=== PATIENT | female | born 1980 | race Caucasian/White ===

== ENCOUNTER 2020-11-23 11:41 | Observation (INO) | payer SELFPAY ==
[2020-11-23] MEDS ORDERED: Midazolam HCl 2 mg/2 ml Vial ONE (12:34)
[2020-11-23] MEDS ORDERED: Lidocaine 1% PF 5 ML VIAL ONE (13:01)
[2020-11-23] MEDS ORDERED: Ketorolac Tromethamine 30 MG/ML VIAL ONE (13:01)
[2020-11-23] MEDS ORDERED: Dexamethasone 20 MG/5 ML VIAL ONE (13:01)
[2020-11-23] MEDS ORDERED: Ondansetron PF 4 MG/2 ML Vial ONE (13:01)
[2020-11-23] MEDS ORDERED: PROPOFOL 200 MG/20 ML VIAL ONE (13:01)
[2020-11-23] MEDS ORDERED: Iothalamate Meglumine 60% 30 ML VIAL FS ONE (13:16)
[2020-11-23] MEDS ORDERED: Oxybutynin 5 MG TAB PO PRN (13:49)
[2020-11-23] MEDS ORDERED: Ondansetron PF 4 MG/2 ML Vial IVP PRN (13:49)
[2020-11-23] MEDS ORDERED: diphenhydrAMINE 50 MG/ML VIAL IVP PRN (13:49)
[2020-11-23] MEDS ORDERED: Fentanyl 100 MCG/2 ML VIAL ONE (13:58)
[2020-11-23] MEDS ORDERED: Promethazine HCl 25 MG/ML VIAL IM PRN (14:29)
[2020-11-23] MEDS ORDERED: HYDROmorphone 2 MG/ML VIAL SLOW IVP PRN (14:29)
[2020-11-23] MEDS ORDERED: Promethazine HCl 25 MG/ML VIAL IVPB PRN (14:29)
[2020-11-23 16:07] VITALS: BMI 22.8
[2020-11-23] MEDS: Morphine 4 MG/ML VIAL SLOW IVP PRN (16:53)
[2020-11-23] MEDS: Ketorolac Tromethamine 30 MG/ML VIAL IVP SCH (18:24)
[2020-11-23] MEDS: D5 0.9% NS w/ 20 mEq KCl 1,000 ML IV SCH (18:24)
[2020-11-23] MEDS ORDERED: Zolpidem Tartrate 5 MG TAB PO PRN (21:00)
[2020-11-23] MEDS: Docusate 100 MG CAP PO SCH (22:30)
[2020-11-24] MEDS: Ketorolac Tromethamine 30 MG/ML VIAL IVP SCH ×2 (01:17→06:23)
[2020-11-24] MEDS: D5 0.9% NS w/ 20 mEq KCl 1,000 ML IV SCH (01:39)
[2020-11-24] MEDS: HYDROcodone/Acetaminophen 5/325 mg Tablet PO PRN ×2 (04:23→11:32)
[2020-11-24 06:26] LABS: Anion Gap 9 mmol/L (10-20); BUN (Urea Nitrogen) 9 mg/dL (7.0-18.7); Calc. Creatinine Clearance 100 mL/min (70-130); Calcium 8.4 mg/dL (7.8-10.44); Carbon Dioxide 23 mmol/L (22-29); Chloride 109 mmol/L (98-107); Glucose 146 mg/dL (70-105); Potassium 4.4 mmol/L (3.5-5.1); Sodium 137 mmol/L (136-145)
[2020-11-24 06:33] LABS: Band 10 % (5-11); Hemoglobin 11.4 g/dL (12.0-16.0); Hypochromia SLIGHT = 6-15 cells (100X) (0-5/hpf); Lymphocytes 2 % (21-51); MDiff Complete? YES; Mean Corpuscular HGB CONC 33.5 g/dL (32.0-36.0); Mean Corpuscular Hemoglobin 32.2 pg (27.0-31.0); Mean Corpuscular Volume 96.3 fL (78.0-98.0); Mean Platelet Volume 7.1 fL (7.4-10.4); Monocytes 4 % (0-10); Neutrophil 84 % (42-75); Platelet Count 309 thou/uL (130-400); Platelet Morphology Comment Appears Adequate; Red Blood Cell (RBC) Count 3.53 mill/uL (4.20-5.40); White Blood Cell (WBC) Count 21.1 thou/uL (4.8-10.8)
[2020-11-24] MEDS ORDERED: cefTRIAXone\\ROCEPHIN 1 GM in Sodium Chloride 0.9% 100 ML IVPB SCH (08:00)
[2020-11-24] MEDS: Docusate 100 MG CAP PO SCH (08:59)
[2020-11-24] MEDS: Morphine 4 MG/ML VIAL SLOW IVP PRN (09:18)
[2020-11-24 11:31] VITALS: BP 121/73; TEMP 98.3
== END 2020-11-24 12:15 | disposition home or self-care (01) ==
LOC: SDC 11:41 → SURG B 13:12
PROVIDERS: ADMIT Urology; ATTEND Urology
PROC: 0T788DZ Dilation of Bilateral Ureters with Intraluminal Device, Via Natural or Artificial Opening Endoscopic (ICD-10-PCS; principal; 2020-11-23)
DX: A41.9 Sepsis, unspecified organism (principal); N13.6 Pyonephrosis; Z88.1 Allergy status to other antibiotic agents; Z98.51 Tubal ligation status
CPT/HCPCS: 36415; 74420; 80048; 85025; 96365; 96375; 96376; C2617; G0378; J0696; J1100; J1885; J2250; J2270; J2405; J2704; J3010; J3480; J3490

== ENCOUNTER 2022-01-01 17:46 | Observation (INO) | payer SELFPAY ==
[2022-01-01] MEDS ORDERED: Ketorolac Tromethamine 30 MG/ML VIAL ONE (19:15)
[2022-01-01] MEDS ORDERED: cefTRIAXone\\ROCEPHIN 2 GM VIAL ONE (19:54)
[2022-01-01] MEDS ORDERED: Ondansetron PF 4 MG/2 ML Vial IVP PRN (20:30)
[2022-01-01] MEDS ORDERED: Ondansetron ODT 4 MG TAB SL PRN (20:30)
[2022-01-01] MEDS ORDERED: Ketorolac Tromethamine 30 MG/ML VIAL IVP PRN (20:31)
[2022-01-01] MEDS ORDERED: Morphine 4 MG/ML VIAL SLOW IVP PRN (20:32)
[2022-01-01] MEDS: Lactated Ringer's 1,000 ML IV SCH (21:22)
[2022-01-02 06:08] VITALS: BMI 24.7
[2022-01-02] MEDS: Lactated Ringer's 1,000 ML IV SCH (06:44)
[2022-01-02] MEDS ORDERED: Cefepime 1 GM in Sodium Chloride 0.9% 100 ML IVPB SCH (09:00)
[2022-01-02] MEDS ORDERED: Ketorolac Tromethamine 30 MG/ML VIAL IVP PRN (10:17)
[2022-01-02] MEDS ORDERED: Ondansetron PF 4 MG/2 ML Vial IVP PRN (10:18)
[2022-01-02] MEDS: Morphine 2 MG/ML VIAL SLOW IVP PRN ×2 (10:25→15:52)
[2022-01-02] MEDS ORDERED: Lactated Ringer's 1,000 ML IV SCH (10:30)
[2022-01-02] MEDS ORDERED: fentaNYL Citrate/PF 100 MCG/2 ML SYRINGE ONE (12:23)
[2022-01-02] MEDS ORDERED: Iopamidol 0 ML ONE (12:29)
[2022-01-02] MEDS ORDERED: B & O ONE (12:29)
[2022-01-02] MEDS ORDERED: Ondansetron PF 4 MG/2 ML Vial ONE (13:10)
[2022-01-02] MEDS ORDERED: PROPOFOL 200 MG/20 ML VIAL ONE (13:10)
[2022-01-02] MEDS ORDERED: Phenylephrine 10 MG/ML VIAL ONE (13:10)
[2022-01-02] MEDS ORDERED: Dexamethasone 20 MG/5 ML VIAL ONE (13:10)
[2022-01-02] MEDS ORDERED: Lidocaine 1% MPF 2 ML VIAL ONE (13:10)
[2022-01-02 20:07] VITALS: BP 108/73; TEMP 97.8
[2022-01-02] MEDS ORDERED: Oxybutynin 5 MG TAB PO SCH (21:00)
[2022-01-03] MEDS ORDERED: Tamsulosin HCl 0.4 MG CAP PO SCH (09:00)
== END 2022-01-02 19:00 | disposition home or self-care (01) ==
LOC: ERS 17:46 → SURG B 19:26
PROVIDERS: ADMIT Urology; ATTEND Urology
PROC: 0T778DZ Dilation of Left Ureter with Intraluminal Device, Via Natural or Artificial Opening Endoscopic (ICD-10-PCS; principal; 2022-01-02)
DX: N13.6 Pyonephrosis (principal); F17.210 Nicotine dependence, cigarettes, uncomplicated; F12.10 Cannabis abuse, uncomplicated; Z88.1 Allergy status to other antibiotic agents
CPT/HCPCS: 76000; 96374; 96375; 96376; C2617; G0378; J0692; J0696; J1100; J1885; J2270; J2370; J2405; J2704; J3490; J7120; Q9967

== ENCOUNTER 2022-01-31 05:19 | Inpatient (IN) | payer MEDICAID, SELFPAY ==
[2022-01-31 07:21] LABS: Bilirubin Negative (Negative); Blood, Urine 2+ (Negative); Glucose, Urine (Dipstick) Normal (Negative); Ketone, Urine Negative (Negative); Leukocyte 500 Leu/uL (Negative); Nitrite Negative (Negative); Protein, Urine (Dipstick) 20 mg/dL (Neg-Trace); RBC/HPF 21-50 HPF (0-3); Specific Gravity, Urine 1.009 (1.002-1.036); Urobilinogen Normal mg/dL (Less than 2); WBC/HPF 21-50 HPF (0-3)
[2022-01-31 07:22] LABS: Bacteria/HPF 1+ HPF (None Seen); Clarity Hazy (Clear)
[2022-01-31 07:26] LABS: #Basophils 0.1 thou/uL (0.0-0.2); #Eosinphils 0.1 thou/uL (0.0-0.7); #Lymphocytes 1.8 thou/uL (1.20-3.40); #Monocytes 1.3 thou/uL (0.11-0.59); #Neutrophils 12.4 thou/uL (1.40-6.50); %Basophils 0.4 % (0.0-1.0); %Eosinophils 0.7 % (0.0-10.0); %Lymphocytes 11.5 % (21.0-51.0); %Neutrophils 79.5 % (42.0-75.0); Hemoglobin 12.6 g/dL (12.0-16.0); Mean Corpuscular HGB CONC 34.1 g/dL (32.0-36.0); Mean Corpuscular Hemoglobin 31.4 pg (27.0-31.0); Mean Corpuscular Volume 92.2 fL (78.0-98.0); Mean Platelet Volume 6.8 fL (7.4-10.4); Platelet Count 391 thou/uL (130-400); RBC Distribution Width 11.7 % (11.5-14.5); Red Blood Cell (RBC) Count 4.02 mill/uL (4.20-5.40); White Blood Cell (WBC) Count 15.6 thou/uL (4.8-10.8)
[2022-01-31 07:49] LABS: ALT (SGPT) 36 U/L (8-55); AST (SGOT) 31 U/L (5-34); Albumin 3.4 g/dL (3.5-5.0); Alkaline Phosphatase 141 U/L (40-110); Anion Gap 13 mmol/L (10-20); BUN (Urea Nitrogen) 4 mg/dL (7.0-18.7); Bilirubin, Total 0.4 mg/dL (0.2-1.2); CK (CPK) 69 U/L (29-168); Calc. Creatinine Clearance 0 mL/min (70-130); Calcium 8.4 mg/dL (7.8-10.44); Carbon Dioxide 24 mmol/L (22-29); Chloride 107 mmol/L (98-107); Estimated GFR 115; Globulin 2.5 g/dL (2.4-3.5); Glucose 102 mg/dL (70-105); Lipase 8 U/L (8-78); Potassium 3.6 mmol/L (3.5-5.1); Protein, Total 5.9 g/dL (6.0-8.3); Sodium 140 mmol/L (136-145)
[2022-01-31] MEDS ORDERED: Cefepime 2 GM VIAL ONE (08:44)
[2022-01-31] MEDS ORDERED: Ondansetron ODT 4 MG TAB PO PRN (08:59)
[2022-01-31] MEDS ORDERED: Ondansetron PF 4 MG/2 ML Vial IVP PRN (08:59)
[2022-01-31] MEDS ORDERED: Vancomycin 1 GM/200 ML BAG ONE (09:34)
[2022-01-31] MEDS: Acetaminophen 325 MG TAB PO PRN ×2 (10:15→17:22)
[2022-01-31 10:22] LABS: Bacteria/HPF None Seen HPF (None Seen); Bilirubin Negative (Negative); Blood, Urine 2+ (Negative); Clarity Clear (Clear); Glucose, Urine (Dipstick) Normal (Negative); Ketone, Urine Negative (Negative); Leukocyte 250 Leu/uL (Negative); Nitrite Negative (Negative); Protein, Urine (Dipstick) Negative (Neg-Trace); Squamous Epithelial 0-3 HPF (0-3); Urobilinogen Normal mg/dL (Less than 2)
[2022-01-31 10:32] VITALS: BMI 25.9
[2022-01-31] MEDS: Lactated Ringer's 1,000 ML IV SCH ×2 (13:01→22:12)
[2022-01-31 13:05] LABS: SARS-CoV-2 NAA Rapid Test Not Detected (NotDetected)
[2022-01-31] MEDS ORDERED: Promethazine 25 MG TAB PO PRN (16:29)
[2022-01-31 17:41] LABS: Pregnancy Test - Urine (BHCG) Negative (Negative); Pregu Control Background? CLEAR/WHITE (CLR/WHITE); Pregu Control Bar Appear? YES (CONTROL BAR); Specific Gravity 1.009 (1.002-1.036)
[2022-01-31] MEDS ORDERED: Meropenem 1 GM in Sodium Chloride 0.9% 100 ML IVPB SCH ×2 (18:00→22:00)
[2022-01-31] MEDS: HYDROcodone/Acetaminophen 5/325 mg Tablet PO PRN ×2 (18:20→22:19)
[2022-02-01] MEDS: Meropenem 1 GM in Sodium Chloride 0.9% 100 ML IVPB SCH ×2 (02:08→09:28)
[2022-02-01] MEDS: HYDROcodone/Acetaminophen 5/325 mg Tablet PO PRN ×3 (02:09→13:04)
[2022-02-01 06:02] LABS: #Basophils 0.1 thou/uL (0.0-0.2); #Eosinphils 0.4 thou/uL (0.0-0.7); #Lymphocytes 2.7 thou/uL (1.20-3.40); #Monocytes 0.9 thou/uL (0.11-0.59); #Neutrophils 5.2 thou/uL (1.40-6.50); %Basophils 0.6 % (0.0-1.0); %Eosinophils 3.8 % (0.0-10.0); %Lymphocytes 29.3 % (21.0-51.0); %Monocytes 9.9 % (0.0-10.0); %Neutrophils 56.4 % (42.0-75.0); Hemoglobin 10.5 g/dL (12.0-16.0); Mean Corpuscular Hemoglobin 30.5 pg (27.0-31.0); Mean Corpuscular Volume 92.5 fL (78.0-98.0); Mean Platelet Volume 6.9 fL (7.4-10.4); Platelet Count 389 thou/uL (130-400); RBC Distribution Width 11.8 % (11.5-14.5); Red Blood Cell (RBC) Count 3.45 mill/uL (4.20-5.40); White Blood Cell (WBC) Count 9.3 thou/uL (4.8-10.8)
[2022-02-01 08:41] VITALS: BP 143/90
[2022-02-01 12:28] VITALS: TEMP 98.1
== END 2022-02-01 18:09 | disposition left against medical advice (07) | DRG 871 ==
LOC: ERS 05:19 → SURG B 10:03
PROVIDERS: ADMIT Family Medicine; ATTEND Family Medicine
PROC: 3E03329 Introduction of Other Anti-infective into Peripheral Vein, Percutaneous Approach (ICD-10-PCS; principal; 2022-01-31)
PROC: 0T9B70Z Drainage of Bladder with Drainage Device, Via Natural or Artificial Opening (ICD-10-PCS; 2022-01-31)
DX: A41.9 Sepsis, unspecified organism (principal); J18.9 Pneumonia, unspecified organism; F17.210 Nicotine dependence, cigarettes, uncomplicated; Z87.442 Personal history of urinary calculi; N20.0 Calculus of kidney; Z20.822 Contact with and (suspected) exposure to COVID-19; Z28.311 Partially vaccinated for COVID-19; Z96.0 Presence of urogenital implants; Z88.1 Allergy status to other antibiotic agents
CPT/HCPCS: 36415; 51701; 71045; 74176; 80053; 81003; 81015; 81025; 82550; 83605; 83690; 84145; 85025; 87040; 87086; 93005; 96365; 96375; J0692; J2185; J3370; J3490; J7120; Q0162